=== PATIENT | female | born 1955 | race Caucasian/White ===

== ENCOUNTER 2020-06-03 16:37 | Observation (INO) | payer OTHER, SELFPAY ==
--- NOTE | ~2020-06-03 | MR_ITS ---
EXAMINATION: MR brain/brain stem wo/w con EXAM DATE: 06/04/2020 08:22 INDICATION: Left arm and face numbness. TECHNIQUE: Magnetic resonance imaging (MRI) of the brain/brain stem obtained without contrast. Sagit jim T1, axial diffusion, gradient echo (T2*), T1, T2, FLAIR sequences obtained. Patient was then inj ected with 20 cc intravenous Multihance contrast. Axial and coronal postcontrast T1 weighted sequence s obtained. Correlation is made to head CT from 06/03/2020. FINDINGS: There are no areas of restricted diffusion to suggest acute infarction. There is no acute hemorrhage seen on the T2*, a hemosiderin sensitive sequence. No intraparenchymal brain mass lesion. There is mild periventricular and subcortical T2/FLAIR signal hyperintensity, nonspecific but probab ly related to small vessel ischemic disease (microangiopathy). There are no extra-axial collectio ns. Flow voids are seen in the cerebral arteries on the T2-weighted sequences consistent with their expected patency. The orbits are unremarkable. Soft tissue is unremarkable. There are no areas of abnormal enhancement on the postcontrast images. IMPRESSION: 1. No acute intracranial findings. 2. Mild microangiopathy. Reviewed, dictated and finalized at location A.
--- NOTE | ~2020-06-03 | US_ITS ---
EXAMINATION: US carotid duplex BI DATE: 06/04/2020 08:37 INDICATION: Carotid stenosis. Possible CVA. TECHNIQUE: Grayscale, color Doppler, and pulsed Doppler images of the cervical carotid arteries were obtained. The degree of vessel stenosis is placed in one of the following categories: normal, <50%, 5 0-69%, >=70% but less than near-occlusion, near-occlusion, or total occlusion. Note that percent sten osis relative to normal distal artery lumen diameter is indirectly measured from velocity measurement s as described by Taz, et al. Radiology 2003; 229:340-346. Notes: Normal: Peak systolic velocity <125 centimeters/sec and no plaque <50%. Peak systolic velocity <125 ( EDV <40; ICA/CCA PSV ratio <2.0; used these factors only a tandem lesions or low cardiac output or co ntralateral disease) 50-69 %: PSV 125-230 (EDV 40-100; ratio 2-4) >= 70% but less than near occlusion: PSV greater than 230 (EDV > 100; ratio> 4.0) Near Occlusion: PSV that is variable; markedly narrowed lumen Occlusion: Absent flow on color/spectral Doppler and no lumen on denise scale. COMPARISON: None. FINDINGS: RIGHT: The right common carotid artery (CCA) peak systolic velocity (PSV) is 73 cm/s. The right internal car otid artery (ICA) PSV is 72 cm/s. The right ICA end-diastolic velocity (EDV) is 27 cm/s. The right IC A/CCA PSV ratio is 1.0. The external carotid artery (ECA) PSV is 67 cm/s. There is antegrade flow in the right vertebral artery. LEFT: The left CCA PSV is 89 cm/s. The left ICA PSV is 106 cm/s. The left ICA EDV is 29 cm/s. The left ICA/ CCA PSV ratio is 1.2. The ECA PSV is 56 cm/s. There is antegrade flow in the left vertebral artery. IMPRESSION: 1. Less than 50% stenosis in the right internal carotid artery by sonographic criteria. 2. Less than 50% stenosis in the left internal carotid artery by sonographic criteria. Reviewed, dictated and finalized at location B. IMPRESSION: 1. Less than 50% stenosis in the right internal carotid artery by sonographic c elizabeth. 2. Less than 50% stenosis in the left internal carotid artery by sonographic cr kelechi.
--- NOTE | ~2020-06-03 | CT_ITS ---
EXAMINATION: CT BRAIN W/O DATE: 06/03/2020 18:34 INDICATION: Left facial numbness TECHNIQUE: Computed tomography (CT) of the head was performed without intravenous contrast. The dose- length product was 605.33 mGy-cm. COMPARISON: No prior studies for comparison. FINDINGS: Normal brain parenchymal volume for age. Normal denise-white differentiation. No acute intrac ranial hemorrhage, infarction, mass or mass effect. No ventriculomegaly or midline shift. Midline sagittal images demonstrate a normal corpus callosum, c raniovertebral junction and sella turcica. Basilar cisterns are patent. Paranasal sinuses and mastoids are pneumatized. No depressed skull fractures. IMPRESSION: 1. No acute intracranial abnormality. Reviewed, dictated and finalized at location A.
[2020-06-03 17:35] VITALS: BP 149/81; PULSE 79; RESP 18; TEMP 36.2; O2SAT 98
--- NOTE | 2020-06-03 18:23 | ECG_ITS ---
Measurements Intervals [place] Rate: 67 P: 47 MO: 168 QRS: 1 QRSD: 88 T: 27 QT: 391 QTc: 414 Interpretive Statements SINUS RHYTHM VOLTAGE CRITERIA FOR LVH BASELINE ARTIFACT- V6 BORDERLINE ECG Electronically Signed On 06-03-2020 20:13:10 CDT by Damion Rdz D.O.
[2020-06-03 19:13] LABS: Basophils Percent Auto 0.5 % (0.2-1.2); Eosinophils Absolute Auto 0.3 K/mm3 (0-0.3); Eosinophils Percent Auto 4.5 % (0-4.4); Hematocrit 39.6 % (37.0-47.0); Hemoglobin 12.5 g/dL (12.0-15.0); Immature Granulocyte Absolute 0.01 K/mm3 (0.00-0.031); Immature Granulocyte Percent A 0.1 % (0-0.5); Lymphocytes Percent Auto 25.2 % (18.3-44.2); Mean Corpuscular HGB Conc 31.6 g/dl (32-36); Mean Corpuscular Hemoglobin 27.7 pg (26-34); Mean Corpuscular Volume 87.6 fl (80-100); Mean Platelet Volume 9.8 fl (7.4-10.4); Monocytes Absolute Auto 0.7 K/mm3 (0.1-0.6); Monocytes Percent Auto 9.5 % (2.6-8.5); Neutrophils Absolute Auto 4.5 K/mm3 (1.3-6.7); Neutrophils Percent Auto 60.2 % (45.5-73.1); Platelet Count Result 301 k/mm3 (150-375); Red Blood Count 4.52 M/mm3 (4.2-5.4); Red Cell Distribution Width 15.1 % (11.5-14.5); White Blood Count 7.5 K/mm3 (4.5-10.0)
[2020-06-03 19:22] VITALS: BP 136/90; PULSE 72; RESP 15; O2SAT 95
[2020-06-03 19:25] LABS: Prothrombin Time 13.3 Seconds (11.1-14.7)
[2020-06-03 19:26] LABS: Anion Gap 4 mmol/L (8-16); Blood Urea Nitrogen 21 mg/dL (7-17); Calcium 8.7 mg/dL (8.4-10.2); Carbon Dioxide 28 mmol/L (22-30); Chloride 106 mmol/L (98-107); Estimated CRCL calculation 77 ml/min; Estimated Glomerular Filt Rate > 60; Glucose 96 mg/dL (65-105); Magnesium 2.1 mg/dL (1.6-2.3); Partial Thromboplastin Time 23.8 SECONDS (22.3-36.8); Potassium 4.1 mmol/L (3.4-5.0); Sodium 138 mmol/L (137-145)
[2020-06-03 19:38] LABS: Troponin I < 0.012 ng/mL (0.000-0.034)
[2020-06-03 19:47] LABS: Add Urine Microscopic? YES; Appearance Urine Clear (Clear); Bilirubin Urine Negative (Negative); Color Urine Yellow (Yellow); Glucose Urine UA Negative (Negative); Ketones Urine Trace mg/dL (Negative); Leukocyte Esterase Ur 2+ LEU/UL (Negative); Mucus Urine Rare /lpf; Nitrate Urine Negative (Negative); Protein Urine 1+ mg/dL (Negative); RBC Urine 0-2 /hpf (0-2); Specific Grav Ur 1.025 (1.001-1.035); Squamous Epithelial Cell Urine Rare /hpf (Few); Urobilinogen Urine Negative mg/dL (<2.0)
[2020-06-03 20:04] VITALS: BP 128/80; PULSE 74; RESP 20; O2SAT 96
--- NOTE | 2020-06-03 20:05 | ED.GENADULT ---
HPI - General Adult General Chief complaint: Eye Problems Stated complaint: numbness on left side Time Seen by Provider: 06/03/20 18:08 History of Present Illness HPI narrative: Patient is a 64-year-old female who presents ER with twitching of the left eye and numbness of the face and arm. Patient reports twitching is ongoing for 5 days. No aggravating alleviating factors that she can find. No change in home medications. Noticed a couple days ago that if she would bite down she did feel some numbness in her upper lip. Today while driving she developed numbness to her left face, her left arm, and her left leg. This lasted for about an hour. Has since resolved. No previous history of TIA or stroke. Denies having any focal weakness. No slurred speech. Related Data Home Medications Medication Instructions Recorded Confirmed myyckey-stkccxzlrngkf-zybsbgrt 1 tablet PO Q4-6H PRN 06/03/20 06/03/20 [Excedrin Extra Strength] metoprolol tartrate 25 mg PO DAILY 06/03/20 06/03/20 metoprolol tartrate 50 mg PO HS 06/03/20 06/03/20 omeprazole magnesium [Prilosec OTC] 20 mg PO DAILY 06/03/20 06/03/20 polyethylene glycol 3350 [Miralax] 17 g PO PRN PRN 06/03/20 06/03/20 Allergies Allergy/AdvReac Type Severity Reaction Status Date / Time No Known Allergies Allergy Verified 06/03/20 17:38 Review of Systems Review of Systems: All systems reviewed & are unremarkable except as noted in HPI and below Constitutional: Constitutional: Denies chills, Denies fever(s) and Denies weakness Eyes: Eyes: Denies change in vision and Denies photophobia Comments: eye twitching ENT: Denies nasal congestion and Denies sore throat Cardiovascular: Cardiovascular: Denies chest pain, Denies rapid heart rate and Denies radiating jaw, neck or arm pain Respiratory: Respiratory: Denies cough, Denies dyspnea and Denies wheezing Neurologic: Denies confusion, Denies headache(s), Denies focal weakness and Reports numbness PMFSH Past Medical History Medical History (Updated 06/04/20 @ 00:27 by Shekhar Nicholas MD) Depression Ectopic Hypertension Pterygium eye Surgical History Surgical History H/O knee surgery History of salpingectomy Family History Family History Mother Acute myocardial infarction Grandparent Lung cancer Social History Social History Smoking status: Never smoker Alcohol intake: never Substance use: never Gender identity (if verbalized by the patient): Female Spiritual care concerns: No Exam Narrative: Exam Narrative: GENERAL: Well-appearing, well-nourished, and in no acute distress. HEAD: Normocephalic, atraumatic. EYES: PERRL and EOMI. Pterygium left cornea medially. No nystagmus. Occasional left lower lid twitching. ENT: Mucous membranes moist. CHEST: Clear to auscultation. No respiratory distress. HEART: Regular rate and rhythm. Normal peripheral pulses. ABDOMEN: Soft, nontender, nondistended. EXTREMITIES: Normal range of motion. No edema. SKIN: Warm, dry, no rash. NEURO: Alert and oriented x3. Course Reevaluation(s) Reevaluation #1: Discussed with Dr. Bolden. Recommends admit for MRI. Date: 06/03/20 Time: 20:06 Vital Signs Vital signs: Vital Signs Temperature 97.2 F L 06/03/20 17:35 Pulse Rate 79 06/03/20 17:35 Respiratory Rate 18 06/03/20 17:35 Blood Pressure 149/81 H 06/03/20 17:35 Pulse Oximetry 98 06/03/20 17:35 Temperature 97.9 F 06/03/20 21:37 Pulse Rate 77 06/03/20 21:37 Respiratory Rate 20 06/03/20 21:37 Blood Pressure 139/84 06/03/20 21:37 Pulse Oximetry 98 06/03/20 21:37 Medical Decision Making Vital Signs Vital Signs: Vital Signs Temperature 97.2 F L 06/03/20 17:35 Pulse Rate 79 06/03/20 17:35 Respiratory Rate 18 06/03/20 17:35 Blood Pressure 149/81 H 04
[2020-06-03 20:14] LABS: Blood Urine Negative (Negative)
[2020-06-03 21:24] VITALS: BP 132/91; PULSE 80; RESP 20; O2SAT 96
[2020-06-03 21:37] VITALS: BP 139/84; PULSE 77; RESP 20; TEMP 36.6; O2SAT 98; BMI 40.1
--- NOTE | 2020-06-03 21:37 | PC.NURSE ---
This patient, Kasey Azar, was admitted to 3 Med Surg Room 306-01 @ 21:37. Received report from Wanda QUIÑONES in ED. Patient/family oriented to hospital policies and general routines including ID bracelet, bed and alarms, visiting hours, pain management, procedures, bathroom and other care routines, personal items, smoking policy, room service/diet, and visiting hours. Information on how to activate the Rapid Response Team has been discussed. Patient/Family are encouraged to report perceived risks to care and to ask questions if they do not understand what they are told or what they should do.
[2020-06-03 21:38] VITALS: BMI 40.1
--- NOTE | 2020-06-03 22:16 | PM.IMHP ---
H&P: HPI History of Present Illness Date/Time: 06/03/20 22:16 Chief Complaint: left sided facial and arm numbness++ Narrative: This is a pleasant 64-year-old female who is known to have chronic hypertension and depression presented to the hospital today with a complaint of left facial numbness and tingling as well as left upper extremity numbness and tingling that started over an hour before she presented to the emergency room. The patient complains of having spasming of her left lower eyelid over the past week which she did discuss with her eye doctor. The patient is scheduled to have surgery for a pteridium and she mention to her eye doctor that she has been having this spasming. The patient does admit that she has been under some stress lately. She denies any past history of strokes or TIAs. The patient started to experience numbness to the left side of her face and her left upper extremity while she was driving. She also reports having mild tingling of her left knee as well at that time. The patient's symptoms lasted for little over an hour before they resolved. She denied any other significant symptoms such as headache, fever, chills, blurry vision, double vision, facial droop, slurred speech, difficulty swallowing, focal weakness, tongue biting, loss of urine, or loss of consciousness. The patient also denies any seizure-like activity, chest pain, shortness of breath, nausea, vomiting, dysuria, hematuria, abdominal pain, diarrhea, rectal bleeding, or lower extremity pain or swelling. While in the emergency room the patient has not had any recurrence of her symptoms and CT brain was unremarkable for any acute pathology. ER provider has consulted neurology assist, Dr. Bolden and we have been asked to admit the patient to the hospital for stroke workup. No other complaints. Review of Systems Review of Systems: All systems reviewed & are unremarkable except as noted in HPI and below PMFSH Past Medical History Medical History Depression Ectopic Hypertension Pterygium eye Surgical History Surgical History H/O knee surgery History of salpingectomy Family History Family History Mother Acute myocardial infarction Grandparent Lung cancer Social History Social History Smoking status: Never smoker Alcohol intake: never Substance use: never Gender identity (if verbalized by the patient): Female Spiritual care concerns: No Meds Home Medications and Allergies Home Medications Medication Instructions Recorded Confirmed Type vxnfxmd-xvovwxbopvdru-gytbiopd 1 tablet PO Q4-6H PRN 06/03/20 06/03/20 History [Excedrin Extra Strength] metoprolol tartrate 25 mg PO DAILY 06/03/20 06/03/20 History metoprolol tartrate 50 mg PO HS 06/03/20 06/03/20 History omeprazole magnesium [Prilosec OTC] 20 mg PO DAILY 06/03/20 06/03/20 History polyethylene glycol 3350 [Miralax] 17 g PO PRN PRN 06/03/20 06/03/20 History Allergies Allergy/AdvReac Type Severity Reaction Status Date / Time bupropion AdvReac Hallucinati Verified 06/04/20 01:26 ng Vital Signs Vital Signs - 24 hr 06/03/20 17:35 06/03/20 19:22 06/03/20 20:04 Temperature 36.2 C L Pulse Rate 79 72 74 Respiratory Rate 18 15 20 Blood Pressure 149/81 H 136/90 128/80 Pulse Oximetry 98 95 96 06/03/20 21:24 06/03/20 21:37 Temperature 36.6 C Pulse Rate 80 77 Respiratory Rate 20 20 Blood Pressure 132/91 H 139/84 Pulse Oximetry 96 98 Exam Const: General: cooperative, healthy appearing, no acute distress, alert and awake Nutritional Appearance: well nourished Orientation/consciousness: patient oriented x3 HENMT: Head: normal to inspection General nose exam: Normal external nose present Face and sinus: normal facial e
[2020-06-03] MEDS: ASPIRIN 81 MG CHEWABLE TABLET 324 MG PO (22:45)
[2020-06-03] MEDS: ATORVASTATIN 10 MG TABLET PO (22:45)
--- NOTE | 2020-06-03 23:11 | PC.NURSE ---
Patient has home meds in the med room. One pill divider with multiple daily pills, and one bottle of excedrin. -AEW RN
[2020-06-04] VITALS (7 sets, daily range): BP systolic 136–137; BP diastolic 77–86; PULSE 65–89; RESP 20; TEMP 36.3–36.8; O2SAT 96–99
--- NOTE | 2020-06-04 | ECHO_ITS ---
Patient Info Name: Kasey Azar Age: 64 years : 1955 Gender: Female Ht: 65 in Wt: 243 lbs BSA: 2.30 m2 HR: 69 bpm BP: 136 / 77 mmHg Heart Rhythm: Sinus Rhythm Technical Quality: Good Exam Date: 06/04/2020 11:40 AM Exam Location: [facility] Pulmonary Exam Room: 306 Patient Status: Inpatient Admit Date: 06/03/2020 Staff Ordering Physician: Tyelr Moseley MD [employer] Conservationist: Bell Jewell RDCS Attending Provider: Dori Ford PA-C Referring Physician: Pradip MENSAH; Exam Type: CA echo doppler w bubble study Study Info Indications - numbness r/o CVA Complete two-dimensional, color flow and Doppler transthoracic echocardiogram is performed with agitated saline. Contrast/Agitated Saline Contrast/Ag. Saline: Agitated Saline Amount: 20.00 ml Administered By: Latasha Patel RN Existing IV Access: Yes IV Access Condition: patent with no signs of infiltration Summary 1. Left ventricular systolic function is normal, estimated at 65-70%. 2. There is no increased left ventricular wall thickness. 3. The left ventricular diastolic function is grade I diastolic dysfunction. 4. Left atrial chamber dimension is mildly enlarged. 5. No intracardiac shunt at the atrial level with color-flow Doppler nor with injection of agitated saline with Valsalva. 6. There is trace tricuspid valve regurgitation. 7. No pulmonary hypertension, estimated pulmonary arterial systolic pressure is 29 mmHg. Recommendations * Consider transesophageal echocardiogram if clinically indicated. Left Ventricle Left ventricular chamber dimension is normal. Left ventricular systolic function is normal, estimated at 65-70%. There is no increased left ventricular wall thickness. The left ventricular diastolic function is grade I diastolic dysfunction. Right Ventricle Right ventricular chamber dimension is normal. Right ventricular systolic function is normal. Left Atria Left atrial chamber dimension is mildly enlarged. Right Atria Right atrial chamber dimension is normal. Atrial Septum No intracardiac shunt at the atrial level with color-flow Doppler nor with injection of agitated saline with Valsalva. Aortic Valve The aortic valve is trileaflet. There is no aortic valve stenosis. There is no aortic valve regurgitation. Pulmonic Valve The pulmonic valve is normal. There is mild pulmonic regurgitation. Mitral Valve The mitral valve has normal leaflets. There is mild mitral valve regurgitation. Tricuspid Valve The tricuspid valve leaflets are normal. There is trace tricuspid valve regurgitation. No pulmonary hypertension, estimated pulmonary arterial systolic pressure is 29 mmHg. Inferior Vena Cava Normal inferior vena cava with >50% collapse upon inspiration consistent with normal right atrial pressure, 5 mmHg. Aorta The aortic root size at the sinus of Valsalva is normal. There is mild aortic atherosclerosis. Left Ventricular Outflow Tract Name Value Normal LVOT 2D LVOT Diameter 2.0 cm LVOT Doppler LVOT Peak Gradient
[2020-06-04 06:18] LABS: Basophils Percent Auto 0.8 % (0.2-1.2); Eosinophils Absolute Auto 0.4 K/mm3 (0-0.3); Hematocrit 37.6 % (37.0-47.0); Hemoglobin 11.8 g/dL (12.0-15.0); Immature Granulocyte Absolute 0.01 K/mm3 (0.00-0.031); Immature Granulocyte Percent A 0.2 % (0-0.5); Lymphocytes Absolute Auto 1.86 K/mm3 (0.9-3.2); Lymphocytes Percent Auto 35.6 % (18.3-44.2); Mean Corpuscular HGB Conc 31.4 g/dl (32-36); Mean Corpuscular Hemoglobin 27.4 pg (26-34); Mean Corpuscular Volume 87.2 fl (80-100); Mean Platelet Volume 9.8 fl (7.4-10.4); Monocytes Absolute Auto 0.7 K/mm3 (0.1-0.6); Monocytes Percent Auto 12.5 % (2.6-8.5); Neutrophils Absolute Auto 2.2 K/mm3 (1.3-6.7); Neutrophils Percent Auto 42.9 % (45.5-73.1); Platelet Count Result 280 k/mm3 (150-375); Red Blood Count 4.31 M/mm3 (4.2-5.4); White Blood Count 5.2 K/mm3 (4.5-10.0)
[2020-06-04 06:20] LABS: Hemoglobin A1C 5.6 % (<5.7)
[2020-06-04 06:24] LABS: Anion Gap 3 mmol/L (8-16); Blood Urea Nitrogen 19 mg/dL (7-17); Calcium 8.1 mg/dL (8.4-10.2); Carbon Dioxide 28 mmol/L (22-30); Chloride 107 mmol/L (98-107); Cholesterol 160 mg/dL (0-200); Estimated CRCL calculation 99 ml/min; Estimated Glomerular Filt Rate > 60; Glucose 96 mg/dL (65-105); HDL Direct 54 mg/dL; Magnesium 2.1 mg/dL (1.6-2.3); Potassium 4.1 mmol/L (3.4-5.0); Sodium 138 mmol/L (137-145); Triglycerides 80 mg/dL (<150)
[2020-06-04 06:35] LABS: LDL Cholesterol Direct 79 mg/dL
[2020-06-04] MEDS: ENOXAPARIN 40 MG/0.4 ML SYRINGE SUB-Q (08:46)
[2020-06-04] MEDS: METOPROLOL TARTRATE 25 MG TABLET PO (08:46)
[2020-06-04] MEDS: PANTOPRAZOLE 40 MG TABLET PO (08:47)
--- NOTE | 2020-06-04 15:33 | PM.DS ---
DS: Admitting Diagnosis Admitting Diagnosis Admitting Diagnosis: Transient neurological symptoms DS: Discharge Diagnosis Discharge Diagnosis (1) Brain TIA: Code(s): G45.9 - Transient cerebral ischemic attack, unspecified Status: Acute Assessment and Plan: She presented with left facial numbness and left upper extremity tingling that lasted for 1 hour prior to presentation. Symptoms resolved entirely prior to arrival. Head CT was negative for acute findings. Follow-up brain MRI also negative for acute findings with mild small vessel ischemic disease. Carotid Doppler with <50% stenosis of bilateral internal carotid arteries. Electrolytes were stable. Symptoms felt to be consistent with TIA. Case discussed with neurology. She was initiated on daily aspirin therapy. Lipid panel reviewed and within normal limits. ASCVD risk score was 6.7%. Echocardiogram was performed on 06/04/2020 with results pending. See below for further information. She is established with a neurologist at [facility] and has an appointment scheduled in 2 weeks. (2) Hypertension: Qualifiers: Hypertension type: unspecified Qualified Code(s): I10 - Essential (primary) hypertension Code(s): I10 - Essential (primary) hypertension Status: Chronic Assessment and Plan: Blood pressure reviewed and was well controlled. Continue metoprolol. DS: Summary Hospital Course Reason for hospitalization: Facial numbness Hospital Course: Date of admission: 06/03/2020 Date of discharge: 06/04/2020 Kasey Azar is a 64-year-old female with a history hypertension, depression, and pterygium of bilateral eyes with plans for eye surgery next month who presented to the emergency department on 06/03/2020 with complaints of left-sided facial numbness and left arm tingling. She also noted a twitching of her left eye that had been ongoing for several days. She notes that she has been under recent stress slightly regarding her 2 adult children. Her symptoms of numbness and tingling lasted about 1 hour and then resolved entirely prior to presentation. She did not have any focal weakness, loss of coordination or balance, speech changes, or visual changes. Upon presentation to the emergency department, her BP was slightly elevated at 140 9/81 with additional vital signs stable, CBC and BMP within normal limits, magnesium 2.1, troponin was negative, and head CT showed no acute findings. She was admitted to the hospitalist service for further evaluation and management. Please see above for further details. Case was discussed with neurologist, Dr. Bolden who felt that formal consultation was not required given resolution of symptoms. Additional workup negative as described above. Patient was feeling back to her normal self and was eager for discharge home. As mentioned above, her echocardiogram was not red prior to discharge. Patient felt strongly that she wanted to go home and could follow up on echocardiogram results later. I told her that I would be in contact to discuss results via phone and any abnormal findings would be directed to her primary care provider. She felt comfortable with this plan. I educated the patient and her about signs and symptoms of stroke to monitor for, healthy lifestyle changes, and worrisome signs and symptoms for which to return for 15 minutes. All of their questions were answered. Given her overall improvement, she was determined to no longer require inpatient care and was felt to be stable for discharge. We discussed her new medications. She was discharged in hemodynamically stable condition on 06/04/2020. She incidentally had a neurology appointment scheduled in approximately 2 weeks, at which time she was scheduled to have an MRI. She plans to keep this appointment and have her MRI results forwarded to [facility]. Status at Discharge Functional status at discharge: indep
== END 2020-06-04 15:50 | disposition home or self-care (01) ==
LOC: ANHED 18:41 → ANH3MEDSUR 21:07
PROVIDERS: Admitting Provider Family Medicine; Emergency Provider Emergency Medicine; Visit Provider Physician Assistant
DX: G45.9 Transient cerebral ischemic attack, unspecified (principal); I10 Essential (primary) hypertension
CPT/HCPCS: 36415; 70450; 70553; 80048; 80061; 81001; 83036; 83735; 84443; 84484; 85025; 85610; 85730; 87086; 87088; 93005; 93306; 93880; 96372; 96375; 99285; A9270; A9577; G0378; J1650

== ENCOUNTER 2022-05-29 12:39 | Emergency (ER) | payer MEDICARE, SELFPAY ==
--- NOTE | ~2022-05-29 | XR_ITS ---
XR chest 2V 05/29/2022 14:05 Indication: Left-sided chest pain Procedure: 2 view chest Comparison: No prior studies for comparison. Findings: Heart size normal. No focal air space disease, pulmonary edema, pleural effusion or suspect ed pneumothorax. Large hiatal hernia. No acute osseous abnormality. Impression: 1: No acute cardiopulmonary disease. 2: Large hiatal hernia. Reviewed, dictated and finalized at location A. Impression: 1: No acute cardiopulmonary disease. 2: Large hiatal hernia.
--- NOTE | ~2022-05-29 | CT_ITS ---
EXAMINATION: CT abdomen pelvis w con DATE: 05/29/2022 17:26 INDICATION: Left lower quadrant pain TECHNIQUE: Computed tomography (CT) of the abdomen and pelvis was performed with 100 cc Omnipaque 350 intravenous contrast. The dose-length product was 1308.36 mGy-cm. Automated exposure control and ite rative reconstruction technique were employed. COMPARISON: No prior studies for comparison. . FINDINGS: Lung bases are unremarkable. Large hiatal hernia. No significant pleural or pericardial eff usion. No significant vascular abnormality. No lymphadenopathy. Small fat-containing umbilical hernia . The liver, spleen, pancreas, adrenal glands are unremarkable. There are small subcentimeter hypodensi ties of the kidneys, too small to characterize, although likely benign. Gallbladder is present. Nonob structive bowel gas pattern. There is punctate nondependent gas in the bladder, likely from recent in strumentation. No lymphadenopathy. No free air or free fluid. No abnormal pelvic masses or fluid paolo ections. IMPRESSION: 1. No acute abdominal abnormality. 2: Large hiatal hernia. Reviewed, dictated and finalized at location A.
--- NOTE | 2022-05-29 12:42 | ECG_ITS ---
Measurements Intervals [place] Rate: 66 P: 35 MO: 165 QRS: -9 QRSD: 93 T: 15 QT: 382 QTc: 400 Interpretive Statements SINUS RHYTHM VOLTAGE CRITERIA FOR LVH [MEETS CRITERIA IN ONE OF: R(aVL), S(V1), R(V5), R(V5/V6)+S(V1)] COMPARED TO ECG 06/03/2020 19:13:03 NO SIGNIFICANT CHANGES Electronically Signed On 05-29-2022 18:33:55 CDT by Norma Luna M.D.
[2022-05-29 13:02] VITALS: BP 150/92; PULSE 65; RESP 15; TEMP 36.5; O2SAT 99
[2022-05-29 13:18] LABS: Basophils Absolute Auto 0.1 K/mm3 (0.0-0.1); Basophils Percent Auto 0.9 % (0.2-1.2); Eosinophils Absolute Auto 0.3 K/mm3 (0-0.3); Eosinophils Percent Auto 4.6 % (0-4.4); Hematocrit 41.3 % (37.0-47.0); Hemoglobin 13.2 g/dL (12.0-15.0); Immature Granulocyte Absolute 0.01 K/mm3 (0.00-0.031); Immature Granulocyte Percent A 0.2 % (0-0.5); Lymphocytes Absolute Auto 1.44 K/mm3 (0.9-3.2); Lymphocytes Percent Auto 24.7 % (18.3-44.2); Mean Corpuscular Hemoglobin 30.1 pg (26-34); Mean Corpuscular Volume 94.3 fl (80-100); Mean Platelet Volume 9.5 fl (7.4-10.4); Monocytes Absolute Auto 0.5 K/mm3 (0.1-0.6); Monocytes Percent Auto 8.9 % (2.6-8.5); Neutrophils Absolute Auto 3.6 K/mm3 (1.3-6.7); Neutrophils Percent Auto 60.7 % (45.5-73.1); Platelet Count Result 270 k/mm3 (150-375); Red Blood Count 4.38 M/mm3 (4.2-5.4); Red Cell Distribution Width 13.4 % (11.5-14.5); White Blood Count 5.8 K/mm3 (4.5-10.0)
[2022-05-29 13:33] LABS: Alanine Aminotransferase 24 U/L (6-35); Alkaline Phosphatase 83 U/L (38-126); Anion Gap 5 mmol/L (8-16); Aspartate Amino Transferase 29 U/L (14-36); Bilirubin,Total 0.6 mg/dL (0.2-1.3); Blood Urea Nitrogen 16 mg/dL (7-17); Carbon Dioxide 30 mmol/L (22-30); Chloride 103 mmol/L (98-107); Estimated CRCL calculation 90 ml/min; Estimated Glomerular Filt Rate > 60; Glucose 86 mg/dL (65-110); Lipase 71 U/L (23-300); Potassium 4.6 mmol/L (3.4-5.0); Sodium 138 mmol/L (137-145)
[2022-05-29 13:39] LABS: Prothrombin Time 12.7 Seconds (11.1-14.7)
[2022-05-29 13:40] LABS: Partial Thromboplastin Time 21.9 SECONDS (22.3-36.8)
[2022-05-29 13:47] LABS: Troponin I < 0.012 ng/mL (0.000-0.034)
[2022-05-29 17:29] LABS: Troponin I < 0.012 ng/mL (0.000-0.034)
--- NOTE | 2022-05-29 17:37 | ED.GENADULT ---
HPI - General Adult General Chief complaint: Chest Pain Stated complaint: chest pain Time Seen by Provider: 05/29/22 16:16 History of Present Illness HPI narrative: Patient is a 66-year-old female who presents to the ER with abdominal discomfort. She reports around 11:00 she started having pain in her left lower abdomen and traveled up towards her chest to her left shoulder. Pain lasted for several hours. She now only has pain in her left lower abdomen. Feels like she is gassy and bloated. Denies constipation. No fevers or chills or sweats. No exertional chest discomfort. Patient has no history of coronary disease. She does take metoprolol for PVCs. Related Data Home Medications Medication Instructions Recorded Confirmed udzulyr-txsehfigzvhlg-iffiremq 250 1 tablet PO Q4-6H PRN Headache 06/03/20 06/03/20 mg-250 mg-65 mg tablet (Excedrin Extra Strength) metoprolol tartrate 50 mg tablet 25 mg PO DAILY 06/03/20 06/03/20 metoprolol tartrate 50 mg tablet 50 mg PO HS 06/03/20 06/03/20 omeprazole magnesium 20 mg 20 mg PO DAILY 06/03/20 06/03/20 tablet,delayed release (Prilosec OTC) polyethylene glycol 3350 17 gram 17 g PO PRN PRN Constipation 06/03/20 06/03/20 oral powder packet (Miralax) Allergies Allergy/AdvReac Type Severity Reaction Status Date / Time bupropion AdvReac Hallucinati Verified 06/04/20 01:26 ng Review of Systems Review of Systems: All systems reviewed & are unremarkable except as noted in HPI and below Constitutional: Constitutional: Denies chills, Denies fatigue and Denies fever(s) ENT: Denies nasal congestion and Denies sore throat Cardiovascular: Cardiovascular: Reports chest pain, Denies rapid heart rate and Reports radiating jaw, neck or arm pain Respiratory: Respiratory: Denies cough and Denies dyspnea Gastrointestinal: Gastrointestinal: Reports abdominal pain, Reports bloating, Denies diarrhea, Denies nausea and Denies vomiting Genitourinary: Genitourinary: Denies nocturia and Denies dysuria [facility], [facility] Past Medical History Medical History Depression Ectopic Hypertension Pterygium eye Surgical History Surgical History H/O knee surgery History of salpingectomy Family History Family History Mother Acute myocardial infarction Grandparent Lung cancer Social History Social History Smoking status: Never smoker Alcohol intake: never Substance use: never Gender identity (if verbalized by the patient): Female Spiritual care concerns: No Exam Narrative: GENERAL: Well-appearing, well-nourished, and in no acute distress. HEAD: Normocephalic, atraumatic. EYES: PERRLA and EOMI. ENT: Mucous membranes moist. CHEST: Clear to auscultation. No respiratory distress. HEART: Regular rate and rhythm. Normal peripheral pulses. ABDOMEN: Soft, tender palpation left lower quadrant, nondistended. EXTREMITIES: Normal range of motion. No edema. SKIN: Warm, dry, no rash. NEURO: Alert and oriented x3. PSYCH: Normal mood and affect. Course Vital Signs Vital signs: Vital Signs Temperature 97.7 F 05/29/22 13:02 Pulse Rate 65 05/29/22 13:02 Respiratory Rate 15 05/29/22 13:02 Blood Pressure 150/92 H 05/29/22 13:02 Pulse Oximetry 99 05/29/22 13:02 Oxygen Delivery Room Air 05/29/22 13:02 Temperature 97.7 F 05/29/22 13:02 Pulse Rate 65 05/29/22 13:02 Respiratory Rate 15 05/29/22 13:02 Blood Pressure 150/92 H 05/29/22 13:02 Pulse Oximetry 99 05/29/22 13:02 Oxygen Delivery Room Air 05/29/22 13:02 Medical Decision Making Vital Signs Vital Signs: Vital Signs Temperature 97.7 F 05/29/22 13:02 Pulse Rate 65 05/29/22 13:02 Respiratory Rate 15 05/29/22 13:02 Blood Pressure 150/92 H 05/29/22
[2022-05-29 18:00] VITALS: BP 154/77; PULSE 68; RESP 17; O2SAT 93
== END 2022-05-29 18:04 | disposition home or self-care (01) ==
PROVIDERS: Emergency Provider Emergency Medicine
DX: K44.9 Diaphragmatic hernia without obstruction or gangrene (principal); I10 Essential (primary) hypertension; Z90.79 Acquired absence of other genital organ(s)
CPT/HCPCS: 36415; 71046; 74177; 80053; 83690; 84484; 85025; 85610; 85730; 93005; 99284; Q9967

== ENCOUNTER 2022-12-18 17:56 | Emergency (ER) | payer MEDICARE, SELFPAY ==
--- NOTE | ~2022-12-18 | XR_ITS ---
EXAMINATION: XR chest 2V DATE: 12/18/2022 18:23 INDICATION: Midsternal chest pain. TECHNIQUE: Frontal and lateral views of the chest were obtained. COMPARISON: Chest 2 views 05/29/2022, CT abdomen and pelvis 05/29/2022 FINDINGS: There is mild atelectasis in left lower lung zone. No pleural effusion or pneumothorax. The heart size is normal. There is a large hiatal hernia. IMPRESSION: 1. Mild atelectasis in left lower lung zone. 2. Large hiatal hernia. Reviewed, dictated and finalized at location E. K CHECKER
--- NOTE | 2022-12-18 17:57 | ECG_ITS ---
Measurements Intervals [place] Rate: 62 P: 52 UT: 179 QRS: 9 QRSD: 88 T: 20 QT: 385 QTc: 394 Interpretive Statements SINUS RHYTHM VOLTAGE CRITERIA FOR LVH BORDERLINE ECG COMPARED TO ECG 05/29/2022 12:46:35 NO SIGNIFICANT CHANGES Electronically Signed On 12-18-2022 18:48:31 [employer] by Damion Rdz D.O.
[2022-12-18 18:02] VITALS: BP 172/90; PULSE 65; RESP 18; TEMP 36.2; O2SAT 99
[2022-12-18 18:12] LABS: Basophils Percent Auto 0.5 % (0.2-1.2); Eosinophils Absolute Auto 0.3 K/mm3 (0-0.3); Eosinophils Percent Auto 3.1 % (0-4.4); Hematocrit 40.3 % (37.0-47.0); Hemoglobin 12.7 g/dL (12.0-15.0); Immature Granulocyte Absolute 0.02 K/mm3 (0.00-0.031); Immature Granulocyte Percent A 0.3 % (0-0.5); Lymphocytes Absolute Auto 2.22 K/mm3 (0.9-3.2); Lymphocytes Percent Auto 27.8 % (18.3-44.2); Mean Corpuscular HGB Conc 31.5 g/dl (32-36); Mean Corpuscular Hemoglobin 30.3 pg (26-34); Mean Corpuscular Volume 96.2 fl (80-100); Mean Platelet Volume 9.1 fl (7.4-10.4); Monocytes Absolute Auto 0.7 K/mm3 (0.1-0.6); Monocytes Percent Auto 9.1 % (2.6-8.5); Neutrophils Absolute Auto 4.7 K/mm3 (1.3-6.7); Neutrophils Percent Auto 59.2 % (45.5-73.1); Platelet Count Result 288 k/mm3 (150-375); Red Blood Count 4.19 M/mm3 (4.2-5.4); Red Cell Distribution Width 13.2 % (11.5-14.5)
[2022-12-18 18:23] LABS: Alanine Aminotransferase 20 U/L (6-35); Albumin Level 4.1 g/dL (3.5-5.1); Alkaline Phosphatase 66 U/L (38-126); Anion Gap 6 mmol/L (8-16); Aspartate Amino Transferase 25 U/L (14-36); Bilirubin,Total 0.4 mg/dL (0.2-1.3); Blood Urea Nitrogen 18 mg/dL (7-17); Calcium 8.8 mg/dL (8.4-10.2); Carbon Dioxide 31 mmol/L (22-30); Chloride 103 mmol/L (98-107); Estimated CRCL calculation 87 ml/min; Estimated Glomerular Filt Rate > 60; Glucose 92 mg/dL (65-110); Lipase 85 U/L (23-300); Potassium 3.9 mmol/L (3.4-5.0); Sodium 140 mmol/L (137-145)
[2022-12-18 18:31] LABS: INR 0.9; Partial Thromboplastin Time 23.7 SECONDS (22.3-36.8); Prothrombin Time 12.7 Seconds (11.1-14.7)
[2022-12-18 18:34] LABS: Troponin I < 0.012 ng/mL (0.000-0.034)
--- NOTE | 2022-12-18 21:04 | PC.NURSE ---
brought pt back to a room to be seen and pt stated they did not want anymore tests done and chest pain had resolved. pt was educated about use of 3-hour troponin and still would like to refuse. pt was never seen by provider
== END 2022-12-18 21:37 | disposition left against medical advice (07) ==
PROVIDERS: Emergency Provider Student in an Organized Health Care Education/Training Program
DX: R07.2 Precordial pain (principal)
CPT/HCPCS: 36415; 71046; 80053; 83690; 84484; 85025; 85610; 85730; 93005; 99199

== ENCOUNTER 2023-12-12 23:21 | Emergency (ER) | payer MEDICARE, SELFPAY ==
[2023-12-12 23:32] VITALS: BP 138/84; PULSE 73; RESP 20; TEMP 36.8; O2SAT 99
--- NOTE | 2023-12-13 00:15 | ED.EXTPRO ---
HPI - Extremity Problem General Chief complaint: Extremity Problem,Nontraumatic Stated complaint: leg pain Time Seen by Provider: 12/13/23 00:09 History of Present Illness HPI Narrative: 68-year-old female with history of hypertension and TIA presents emergency department for intermittent pain to her right calf for 12 hours. Patient states the pain is sharp and intermittent but she cannot identify any aggravating or alleviating factors. States the pain is located to the posterior aspect of her calf and into the back of her knee. She denies lower extremity edema or history of VTE. Denies chest pain or shortness of breath, hemoptysis, lightheadedness or syncope. She is not anticoagulated. She does note that earlier this week she underwent a lung biopsy but was not under general anesthesia. She also came back from [place] 2 weeks ago and had several long plane rides. She denies injury or trauma to this region. Related Data Home Medications Medication Instructions Recorded Confirmed [id number]-sjkysentmvedx-zvlolsib 250 1 tablet PO Q4-6H PRN Headache 06/03/20 06/03/20 mg-250 mg-65 mg tablet (Excedrin Extra Strength) metoprolol tartrate 50 mg tablet 25 mg PO DAILY 06/03/20 06/03/20 metoprolol tartrate 50 mg tablet 50 mg PO HS 06/03/20 06/03/20 omeprazole magnesium 20 mg 20 mg PO DAILY 06/03/20 06/03/20 tablet,delayed release (Prilosec OTC) polyethylene glycol 3350 17 gram 17 g PO PRN PRN Constipation 06/03/20 06/03/20 oral powder packet (Miralax) Allergies Allergy/AdvReac Type Severity Reaction Status Date / Time bupropion AdvReac Hallucinati Verified 12/12/23 23:37 ng Review of Systems Review of Systems: All systems reviewed & are unremarkable except as noted in HPI and below PMFSH Past Medical History Medical History Depression Ectopic Hypertension Pterygium eye Surgical History Surgical History H/O knee surgery History of salpingectomy Family History Family History Mother Acute myocardial infarction Grandparent Lung cancer Social History Social History Smoking status: Never smoker Alcohol intake: never Substance use: never Gender identity (if verbalized by the patient): Female Spiritual care concerns: No Exam Narrative: GENERAL: Well-appearing, well-nourished, and in no acute distress. HEAD: Normocephalic, atraumatic. EYES: EOMI. ENT: Nares clear, no rhinorrhea or epistaxis. Mucous membranes moist. NECK: Supple. CHEST: Clear to auscultation. No respiratory distress. HEART: Regular rate and rhythm. ABDOMEN: Soft, nontender, nondistended, normal active bowel sounds. EXTREMITIES: Normal range of motion. No edema. RLE: negative Homans. No overlying skin changes or cellulitis. DP pulse 2 +. Sensation intact. SKIN: Warm, dry, no rash. NEURO: No focal deficits. Alert and oriented x3 Course Vital Signs Vital signs: Vital Signs Temperature 98.2 F 12/12/23 23:32 Pulse Rate 73 12/12/23 23:32 Respiratory Rate 20 12/12/23 23:32 Blood Pressure 138/84 12/12/23 23:32 Pulse Oximetry 99 12/12/23 23:32 Oxygen Delivery Room Air 12/12/23 23:32 Temperature 98.2 F 12/12/23 23:32 Pulse Rate 73 12/12/23 23:32 Respiratory Rate 20 12/12/23 23:32 Blood Pressure 138/84 12/12/23 23:32 Pulse Oximetry 99 12/12/23 23:32 Oxygen Delivery Room Air 12/12/23 23:32 MDM - Extremity (Nontraumatic) MDM Narrative Medical decision making narrative: 68-year-old female presents to the emergency department for right calf paid for the past 12 hours. No injury or trauma. Patient did have recent international travel 2 weeks ago. Vitals are stable. She is afebrile nontoxic appearing. Exam without edema or overlying skin changes to the calf. She has no signs or symptoms of a PE. CBC and chemistries are unremarkable. Unfortunately we do not have ultrasound at this time to rule out a DVT, therefore D-dimer obtained . Pending D-dimer result at time of sign-out to Dr. Byrd. Lab Data 12/13/23 01:34 PERIPHERAL EDP EQUIPMENT OPERATOR 12/13/23 01:34 PERIPHERAL EDP EQUIPMENT OPERATOR Labs: Lab Results 12/13/23 Range/Units 01:34 PERIPHERAL EDP EQUIPMENT OPERATOR WBC 7.2 (4.5-10.0) K/mm3 RBC 4.35 (4.2-5.4) M/mm3 Hgb 13.3 (12.0-15.0) g/dL Hct 41.4 (37.0-47.0) % MCV 95.2 (80-100) fl MCH 30.6 (26-34) pg MCHC 32.1 (32-36) g/dl RDW 12.9 (11.5-14.5) % Plt Count 275 (150-375) k/mm3 MPV 9.3 (7.4-10.4) fl Immature Gran % (Auto) 0.4 (0-0.5) % Neut % (Auto) 77.7 H (45.5-73.1) % Lymph % (Auto) 11.6 L (18.3-44.2) % Summers % (Auto) 5.9 (2.6-8.5) % Eos % (Auto) 4.3 (0-4.4) % Baso % (Auto) 0.1 L (0.2-1.2) % Lymph # (Auto) 0.83 L (0.9-3.2) K/mm3 Summers # (Auto) 0.4 (0.1-0.6) K/mm3 Eos # (Auto) 0.3 (0-0.3) K/mm3 Baso # (Auto) 0.0 (0.0-0.1) K/mm3 Abs Immat Gran (auto) 0.03 (0.00-0.031) K/mm3 Absolute Neuts (auto) 5.6 (1.3-6.7) K/mm3 Absolute Nucleated RBC 0.000 (0.0-0.012) K/mm3 Nucleated RBC % 0.0 (0.0-0.2) % PT Pending INR Pending APTT Pending D-Dimer Pending Sodium 140 (137-145) mmol/L Potassium 3.6 (3.4-5.0) mmol/L Chloride 104 (98-107) mmol/L Carbon Dioxide 29 (22-30) mmol/L Anion Gap 7 (4-12) mmol/L BUN 15 (7-17) mg/dL Creatinine 0.60 L (0.7-1.0) mg/dL Estim Creat Clear Calc 80 ml/min Estimated GFR > 60 (59 - ) Glucose 103 (65-110) mg/dL Calcium 9.0 (8.4-10.2) mg/dL Discharge Plan Discharge Clinical Impression: Calf pain Qualifiers: Laterality: right Qualified Code(s): M79.661 - Pain in right lower leg Patient Disposition: Home, Self-Care Condition: Stable Instructions: Antibiotic Form, Leg Pain (ED) Additional Instructions: your evaluated in the emergency department for calf and leg pain. Your workup here is reassuring. Please make sure to go to your ultrasound appointment in the morning at 7:30 a.m.. Arrived to the front doors of the [facility] and ask for the radiology department. Please follow-up with your primary care provider. Return to the emergency department if you develop worsening pain or swelling, chest pain or shortness of breath, or other concerning symptoms. Prescriptions: No Action polyethylene glycol 3350 [Miralax] 17 gram Powder In Packet 17 g PO PRN PRN (Reason: Constipation) metoprolol tartrate 50 mg Tablet 50 mg PO HS Rx Instructions: take 50mg at bedtime metoprolol tartrate 50 mg Tablet 25 mg PO DAILY Rx Instructions: 25mg in AM Excedrin Extra Strength 250-250-65 mg Tablet 1 tablet PO Q4-6H PRN (Reason: Headache) omeprazole magnesium [Prilosec OTC] 20 mg Tablet,Delayed Release (Dr/Ec) 20 mg PO DAILY aspirin 81 mg tablet,delayed release (DR/EC) 81 mg PO DAILY Qty: 30 0RF Follow-up/Referrals: PHYSICIAN NOT ON STAFF,NONSTAFF [Primary Care Provider] -
[2023-12-13 01:16] LABS: Prothrombin Time 13.9 Seconds (11.1-14.7)
[2023-12-13 01:17] LABS: Partial Thromboplastin Time 24.7 Seconds (22.3-36.8)
[2023-12-13 01:20] VITALS: BP 129/88; PULSE 77; RESP 18; O2SAT 97
[2023-12-13 01:20] LABS: D Dimer 0.56 ug/mL (<0.48)
[2023-12-13 01:40] LABS: Basophils Percent Auto 0.1 % (0.2-1.2); Eosinophils Absolute Auto 0.3 K/mm3 (0-0.3); Eosinophils Percent Auto 4.3 % (0-4.4); Hematocrit 41.4 % (37.0-47.0); Hemoglobin 13.3 g/dL (12.0-15.0); Immature Granulocyte Absolute 0.03 K/mm3 (0.00-0.031); Immature Granulocyte Percent A 0.4 % (0-0.5); Lymphocytes Absolute Auto 0.83 K/mm3 (0.9-3.2); Lymphocytes Percent Auto 11.6 % (18.3-44.2); Mean Corpuscular HGB Conc 32.1 g/dl (32-36); Mean Corpuscular Hemoglobin 30.6 pg (26-34); Mean Corpuscular Volume 95.2 fl (80-100); Mean Platelet Volume 9.3 fl (7.4-10.4); Monocytes Absolute Auto 0.4 K/mm3 (0.1-0.6); Monocytes Percent Auto 5.9 % (2.6-8.5); Neutrophils Absolute Auto 5.6 K/mm3 (1.3-6.7); Neutrophils Percent Auto 77.7 % (45.5-73.1); Platelet Count Result 275 k/mm3 (150-375); Red Blood Count 4.35 M/mm3 (4.2-5.4); Red Cell Distribution Width 12.9 % (11.5-14.5); White Blood Count 7.2 K/mm3 (4.5-10.0)
[2023-12-13 01:50] LABS: Anion Gap 7 mmol/L (4-12); Blood Urea Nitrogen 15 mg/dL (7-17); Carbon Dioxide 29 mmol/L (22-30); Chloride 104 mmol/L (98-107); Estimated CRCL calculation 80 ml/min; Estimated Glomerular Filt Rate > 60; Glucose 103 mg/dL (65-110); Potassium 3.6 mmol/L (3.4-5.0); Sodium 140 mmol/L (137-145)
[2023-12-13] MEDS: ENOXAPARIN 80 MG/0.8 ML SYRINGE SUB-Q (02:00)
== END 2023-12-13 02:03 | disposition home or self-care (01) ==
PROVIDERS: Emergency Provider Physician Assistant
DX: M79.661 Pain in right lower leg (principal); I10 Essential (primary) hypertension; Z86.73 Personal history of transient ischemic attack (TIA), and cerebral infarction without residual deficits
CPT/HCPCS: 36415; 80048; 85025; 85380; 85610; 85730; 96372; 99283; J1650

== ENCOUNTER 2023-12-13 07:28 | Outpatient (CLI) | payer MEDICARE, SELFPAY ==
--- NOTE | ~2023-12-13 | US_ITS ---
EXAMINATION: US venous doppler LE RT DATE: 12/13/2023 08:08 INDICATION: Right lower limb pain TECHNIQUE: Grayscale ultrasound images without and with compression and Doppler ultrasound images of the right lower extremity veins were obtained. COMPARISON: None. FINDINGS: The visualized portions of right common femoral vein, profunda (deep) femoral vein, femoral vein, pop liteal vein, peroneal trunk, posterior tibial veins, peroneal veins, gastrocnemius vein and greater s aphenous vein outflow are patent. IMPRESSION: 1. No deep venous thrombosis in the right lower limb. Reviewed, dictated and finalized at location A. NT EDUCATOR
== END 2023-12-13 07:29 | disposition home or self-care (01) ==
PROVIDERS: Visit Provider Physician Assistant
DX: M79.661 Pain in right lower leg (principal)
CPT/HCPCS: 93971